=== PATIENT | female | born 1990 | race Caucasian/White ===

== ENCOUNTER 2019-07-29 19:41 | Inpatient (IN) | payer MEDICAID ==
[~2019-07-29] VITALS: Ht 162.6 cm; Wt 63.5 kg
[2019-07-29] MEDS ORDERED: LR 1,000 ML IV SCH ×2 (19:47→23:36)
[2019-07-29] MEDS ORDERED: CEFAZOLIN 2 GM IVPB PREMIX 50 ML IV ONE (20:00)
[2019-07-29 20:30] LABS: BILIRUBIN,URINE NEGATIVE (NEGATIVE); BLOOD, URINE NEGATIVE (NEGATIVE); CLARITY/URINE CLEAR (CLEAR); COLOR,URINE YELLOW (YELLOW); GLUCOSE,URINE NEGATIVE (NEGATIVE); KETONES,URINE NEGATIVE (NEGATIVE); LEUKOCYTE ESTERASE ,URINE NEGATIVE (NEGATIVE); NITRITE, URINE NEGATIVE (NEGATIVE); PH,URINE 6.5 (5.0-8.0); PROTEIN URINE NEGATIVE (NEGATIVE); UROBILINOGEN,URINE 0.2 (0.2-1.0)
[2019-07-29 20:33] LABS: BASOPHILS # (AUTO) 0.1 K/uL (0.0-0.2); BASOPHILS % (AUTO) 0.7 % (0.0-2.0); EOSINOPHILS # (AUTO) 0.1 K/uL (0.0-0.4); HEMATOCRIT 38.6 % (36-48); LYMPHOCYTES % (AUTO) 21.3 % (20.5-51.5); MEAN CORPUSCULAR HEMOGLOBIN 31 pg (27-31); MEAN CORPUSCULAR HGB CONC 34 % (32-36); MEAN CORPUSCULAR VOLUME 92 fL (79.0-98.0); MONOCYTES # (AUTO) 0.7 K/uL (0.0-1.0); MONOCYTES % (AUTO) 7.8 % (1.7-9.3); NEUTROPHILS # (AUTO) 6.4 K/uL (1.8-7.7); NEUTROPHILS % (AUTO) 69.2 % (40.0-70.0); PLATELET COUNT (AUTO) 226 K/uL (130-430); RED CELL DISTRIBUTION WIDTH 13.3 % (9.0-15.0); WHITE BLOOD COUNT (AUTO) 9.3 K/uL (4.8-10.8)
[2019-07-29 20:55] VITALS: BP_SYST 131
[2019-07-29] MEDS ORDERED: TEMAZEPAM 15 MG CAPSULE PO PRN (21:00)
[2019-07-29] MEDS ORDERED: MORPHINE SULFATE 10MG/10ML PF AMP ONE ×2 (21:57→22:35)
[2019-07-29] MEDS ORDERED: fentaNYL CITRATE/PF 100 MCG/2 ML AMP IVP PRN ×2 (22:15)
[2019-07-29] MEDS ORDERED: KETOROLAC TROMETHAMINE 60 MG/2 ML VIAL IM PRN (22:15)
[2019-07-29] MEDS ORDERED: METHYLERGONOVINE MALEATE 0.2 MG/ML AMP ONE ×2 (22:15→22:35)
[2019-07-29] MEDS ORDERED: ONDANSETRON HCL 4 MG/2 ML VIAL IVP PRN (22:15)
[2019-07-29] MEDS ORDERED: DIPHENHYDRAMINE INJ 50 MG/ML VIAL IVP PRN (22:15)
[2019-07-29] MEDS ORDERED: NALBUPHINE HCL 10 MG/ML AMP IVP PRN (22:15)
[2019-07-29] MEDS ORDERED: MORPHINE SULFATE 10MG/10ML PF AMP SP SCH (22:15)
[2019-07-29] MEDS ORDERED: NALOXONE HCL 0.4 MG/ML AMP (NARCAN) IVP PRN ×2 (22:15)
[2019-07-29 22:29] VITALS: BP_SYST 127
[2019-07-29] MEDS ORDERED: LR 1,000 ML IV.SOLN IV ONE (22:35)
[2019-07-29] MEDS ORDERED: KETOROLAC TROMETHAMINE 30 MG VIAL ONE (22:35)
[2019-07-29] MEDS ORDERED: ONDANSETRON HCL 4 MG/2 ML VIAL ONE (22:35)
[2019-07-29] MEDS ORDERED: OXYTOCIN/0.9 % SODIUM CHLORIDE 20 UNITS/1,000 ML BAG IV ONE (22:35)
[2019-07-29] MEDS ORDERED: OXYTOCIN 10 UNIT/ML VIAL ONE (22:35)
[2019-07-29] MEDS ORDERED: BUPIVACAINE /PF 0.75% 10 ML VIAL INJ ONE (22:35)
[2019-07-29] MEDS ORDERED: NS IRRIG SOLN 1000 ML IR ONE (22:35)
[2019-07-29] MEDS ORDERED: MEPERIDINE HCL/PF 25 MG/ML DISP.SYRIN IVP PRN (22:45)
[2019-07-29] MEDS ORDERED: OXYTOCIN/0.9 % SODIUM CHLORIDE 1,000 ML IV ONE ×2 (22:49→23:36)
[2019-07-29] MEDS ORDERED: MEPERIDINE HCL/PF 25 MG/ML DISP.SYRIN ONE (22:54)
[2019-07-29] MEDS ORDERED: BISACODYL 10 MG/SUPPOSITORY RC PRN (23:45)
[2019-07-29] MEDS ORDERED: OXYCODONE/ACETAMINOPHEN 5-325 TABLET PO PRN (23:45)
[2019-07-29] MEDS ORDERED: ANUSOL 1 EA SUPP.RECT (PREPARATION H) RC PRN (23:45)
[2019-07-29] MEDS ORDERED: LANOLIN 7 GM OINT. TP PRN (23:45)
[2019-07-30] MEDS: SIMETHICONE 80 MG TAB.CHEW PO PRN ×3 (06:13→17:58)
[2019-07-30 06:28] LABS: BASOPHILS % (AUTO) 0.2 % (0.0-2.0); EOSINOPHILS % (AUTO) 0.2 % (0.0-4.0); HEMATOCRIT 34.6 % (36-48); HEMOGLOBIN 11.5 g/dL (12.0-16.0); LYMPHOCYTES # (AUTO) 1.3 K/uL (1.0-5.5); LYMPHOCYTES % (AUTO) 9.2 % (20.5-51.5); MEAN CORPUSCULAR HEMOGLOBIN 31 pg (27-31); MEAN CORPUSCULAR HGB CONC 33 % (32-36); MEAN CORPUSCULAR VOLUME 92 fL (79.0-98.0); MONOCYTES % (AUTO) 7.3 % (1.7-9.3); NEUTROPHILS # (AUTO) 11.6 K/uL (1.8-7.7); NEUTROPHILS % (AUTO) 83.1 % (40.0-70.0); PLATELET COUNT (AUTO) 181 K/uL (130-430); RED BLOOD CELL COUNT(AUTO) 3.75 MIL/uL (4.2-6.2); RED CELL DISTRIBUTION WIDTH 13.2 % (9.0-15.0)
[2019-07-30] MEDS: DOCUSATE SODIUM 100 MG CAPSULE PO PRN (11:00)
[2019-07-30] MEDS: OXYCODONE/ACETAMINOPHEN 5-325 TABLET PO PRN ×2 (11:01→22:45)
[2019-07-30] MEDS: IBUPROFEN 600 MG TABLET PO SCH ×3 (12:23→23:52)
[2019-07-31] MEDS: HYDROcodone/ACETAMIN 5-325 MG TAB (NORCO/ VICODIN) PO PRN ×2 (02:52→18:27)
[2019-07-31] MEDS: IBUPROFEN 600 MG TABLET PO SCH ×5 (05:45→23:35)
[2019-07-31] MEDS: SIMETHICONE 80 MG TAB.CHEW PO PRN ×2 (12:23→20:58)
[2019-07-31] MEDS: SENNOSIDES/DOCUSATE SODIUM 1 TAB TABLET(SENOKOT-S) PO PRN ×2 (18:27→23:34)
[2019-07-31] MEDS: DOCUSATE SODIUM 100 MG CAPSULE PO PRN (18:27)
[2019-07-31] MEDS: FIORCET PO PRN (20:58)
[2019-08-01] MEDS: IBUPROFEN 600 MG TABLET PO SCH ×2 (05:41→17:57)
[2019-08-01] MEDS: SIMETHICONE 80 MG TAB.CHEW PO PRN (05:41)
[2019-08-01] MEDS: DOCUSATE SODIUM 100 MG CAPSULE PO PRN (05:41)
[2019-08-01] MEDS: FIORCET PO PRN (11:37)
== END 2019-08-01 19:00 | disposition home or self-care (01) | DRG 540 ==
LOC: SPU 19:41
PROVIDERS: ADMIT Obstetrics & Gynecology; ATTEND Obstetrics & Gynecology
PROC: 10D00Z1 Extraction of Products of Conception, Low, Open Approach (ICD-10-PCS; principal; 2019-07-29 21:30)
DX: O34.211 Maternal care for low transverse scar from previous cesarean delivery (principal); Z37.0 Single live birth; Z3A.39 39 weeks gestation of pregnancy
CPT/HCPCS: 36415; 81003; 85025; 86592; 86886; 86900; 86901; 94760; J0690; J1885; J2175; J2210; J2274; J2405; J2590; J3490; J7120

== ENCOUNTER 2019-08-06 12:01 | Emergency (ER) | payer MEDICAID ==
[~2019-08-06] VITALS: Ht 160 cm; Wt 68.9 kg
[2019-08-06 12:10] VITALS: BP_SYST 141
--- NOTE | 2019-08-06 12:30 | NUR ---
Patient to ER bed 04 to gown for evaluation. Side rails up.
--- NOTE | 2019-08-06 12:35 | NUR ---
Pt brought by self, A&Ox4, pt presents to ER with blood in the urine and discomfort with urination, skin pink and warm, afebrile, pt has one week ago, cap refill <3.
--- NOTE | 2019-08-06 12:36 | NUR ---
Dr Miranda at bedside examining patient
[2019-08-06 12:45] VITALS: BP_SYST 138
--- NOTE | 2019-08-06 12:47 | NUR ---
Patient given written and verbal discharge instructions and verbalizes understanding. ER MD discussed with patient the results and treatment provided. Patient in stable condition. ID arm band removed. Rx of Macrobid given. Patient educated on pain management and to follow up with PMD. Pain Scale 2/10. Opportunity for questions provided and answered. Medication side effect fact sheet provided.
== END 2019-08-06 12:45 | disposition home or self-care (01) ==
LOC: SED 12:01
DX: N39.0 Urinary tract infection, site not specified (principal)
CPT/HCPCS: 81002; 99283